=== PATIENT | male | born 1940 | race Caucasian/White ===

== ENCOUNTER 2016-08-19 15:20 | Inpatient (IN) | payer OTHER ==
[~2016-08-19] VITALS: Ht 162.6 cm; Wt 80.7 kg
[~2016-08-19 15:20] MED LIST: DONE5TAB34 PO; GABA-532 PO
[2016-08-19] MEDS ORDERED: TEMA15CA PO (15:48)
[2016-08-19] MEDS ORDERED: DIVA500T7 PO (15:48)
[2016-08-19] MEDS ORDERED: QUET200T PO (15:48)
[2016-08-19] MEDS ORDERED: GABA-534 PO (15:48)
[2016-08-19] MEDS ORDERED: DIVA250T6 PO (15:48)
[2016-08-19] MEDS ORDERED: QUET100T PO (15:48)
[2016-08-19 15:51] LABS: BASOPHILS # (AUTO) 0.1 /CMM (0.0-0.2); BASOPHILS % (AUTO) 0.8 % (0.0-2.0); EOSINOPHILS # (AUTO) 0.7 /CMM (0.0-0.7); EOSINOPHILS % (AUTO) 8.5 % (0.0-6.0); HEMATOCRIT 39 % (39-51); HEMOGLOBIN 13.3 g/dL (13.5-17.5); LYMPHOCYTES # (AUTO) 2.7 /CMM (0.8-4.8); MEAN CORPUSCULAR HEMOGLOBIN 30 PG (26.0-33.0); MEAN CORPUSCULAR HGB CONC 34 g/dl (31.0-36.0); MEAN CORPUSCULAR VOLUME 88 fL (80-96); MONOCYTES # (AUTO) 0.7 /CMM (0.1-1.30); MONOCYTES % (AUTO) 9.2 % (2.0-12.0); NEUTROPHILS # (AUTO) 3.9 /CMM (1.8-8.9); NEUTROPHILS % (AUTO) 48.5 % (43.0-81.0); PLATELET COUNT (AUTO) 236 /CMM (150-450); RDW COEFFICIENT OF VARIATION 13.8 (11.5-15.0); RED BLOOD CELL COUNT(AUTO) 4.37 MIL/uL (4.5-6.0); WHITE BLOOD COUNT (AUTO) 8.1 K/uL (4.3-11.0)
[2016-08-19 15:59] LABS: CALCIUM, SERUM 8.5 mg/dL (8.5-10.1); CARBON DIOXIDE 30 mmol/L (21-32); CHLORIDE 102 mmol/L (98-107); GLUCOSE 101 mg/dL (74-106); POTASSIUM 4.6 mmol/L (3.5-5.1); SODIUM SERUM 139 mmol/L (136-145); UREA NITROGEN, BLOOD 6 mg/dL (7-18)
[2016-08-19 16:07] LABS: ACETAMINOPHEN 0 ug/ml (10-30); ALANINE AMINOTRANSFERASE 17 U/L (12-78); ALBUMIN 3.6 g/dL (3.4-5.0); ALKALINE PHOSPHATASE 107 U/L (46-116); ASPARTATE AMINOTRANSFERASE 23 U/L (15-37); BILIRUBIN,DIRECT 0.1 mg/dL (0.0-0.2); BILIRUBIN,TOTAL 0.3 mg/dL (0.2-1.0); SALICYLATE 0.7 mg/dL (2.8-20.0)
[2016-08-19 16:08] LABS: ALCOHOL, BLOOD < 3 mg/dL (0-0)
[2016-08-19] MEDS ORDERED: OLANZAPINE 10 MG VIAL IM ONE ×4 (16:27→19:05)
[2016-08-19] MEDS ORDERED: WATER FOR INJECTION,STERILE 10 ML ONE ×2 (16:27→19:06)
[2016-08-19] MEDS ORDERED: LORAZEPAM INJ 2 MG/ML VIAL IM ONE (19:00)
[2016-08-19] MEDS ORDERED: LORAZEPAM INJ 2 MG/ML VIAL ONE (19:06)
[2016-08-19] MEDS ORDERED: MAGNESIUM HYDROXIDE 30 ML UDC PO PRN (20:00)
[2016-08-19] MEDS ORDERED: ACETAMINOPHEN 325 MG TABLET PO PRN (20:00)
[2016-08-19] MEDS ORDERED: MAG HYDROX/AL HYDROX/SIMETH 30 ML UDC PO PRN (20:00)
[2016-08-20 06:59] LABS: BASOPHILS # (AUTO) 0.1 /CMM (0.0-0.2); BASOPHILS % (AUTO) 1.1 % (0.0-2.0); EOSINOPHILS # (AUTO) 0.5 /CMM (0.0-0.7); EOSINOPHILS % (AUTO) 5.1 % (0.0-6.0); HEMATOCRIT 41 % (39-51); HEMOGLOBIN 13.8 g/dL (13.5-17.5); LYMPHOCYTES # (AUTO) 3.3 /CMM (0.8-4.8); LYMPHOCYTES % (AUTO) 31.9 % (20.0-44.0); MEAN CORPUSCULAR HEMOGLOBIN 29 PG (26.0-33.0); MEAN CORPUSCULAR HGB CONC 33 g/dl (31.0-36.0); MEAN CORPUSCULAR VOLUME 87 fL (80-96); NEUTROPHILS # (AUTO) 5.4 /CMM (1.8-8.9); NEUTROPHILS % (AUTO) 51.9 % (43.0-81.0); PLATELET COUNT (AUTO) 274 /CMM (150-450); RDW COEFFICIENT OF VARIATION 14.8 (11.5-15.0); RED BLOOD CELL COUNT(AUTO) 4.73 MIL/uL (4.5-6.0); WHITE BLOOD COUNT (AUTO) 10.4 K/uL (4.3-11.0)
[2016-08-20 07:01] LABS: ALANINE AMINOTRANSFERASE 31 U/L (12-78); ALKALINE PHOSPHATASE 113 U/L (46-116); ASPARTATE AMINOTRANSFERASE 31 U/L (15-37); BILIRUBIN,TOTAL 0.5 mg/dL (0.2-1.0); CALCIUM, SERUM 8.7 mg/dL (8.5-10.1); CARBON DIOXIDE 29 mmol/L (21-32); CHLORIDE 104 mmol/L (98-107); GLUCOSE 104 mg/dL (74-106); SODIUM SERUM 141 mmol/L (136-145); TOTAL PROTEIN, SERUM 7.8 g/dL (6.4-8.2); UREA NITROGEN, BLOOD 6 mg/dL (7-18)
[2016-08-20 08:00] VITALS: BP 141/81
[2016-08-20] MEDS: GABAPENTIN 300 MG CAPSULE PO SCH ×3 (09:04→16:55)
[2016-08-20 16:00] VITALS: BP 128/84
[2016-08-20] MEDS ORDERED: DIVALPROEX SODIUM 500 MG TABLET.DR PO SCH (16:30)
[2016-08-20] MEDS: QUETIAPINE FUMARATE 100 MG TABLET PO SCH (16:55)
[2016-08-20] MEDS ORDERED: GABAPENTIN 100 MG CAPSULE PO SCH (17:00)
[2016-08-20] MEDS: DIVALPROEX SODIUM 125 MG CAP.SPRINK PO SCH ×2 (17:01→20:48)
[2016-08-20 20:00] VITALS: BP 112/74
[2016-08-20] MEDS: DONEPEZIL 5 MG TABLET PO SCH (20:48)
[2016-08-21 08:00] VITALS: BP 119/67
[2016-08-21] MEDS: DIVALPROEX SODIUM 125 MG CAP.SPRINK PO SCH ×2 (09:27→21:10)
[2016-08-21] MEDS: QUETIAPINE FUMARATE 100 MG TABLET PO SCH ×2 (09:27→17:46)
[2016-08-21] MEDS: GABAPENTIN 300 MG CAPSULE PO SCH ×3 (09:30→17:46)
[2016-08-21 16:00] VITALS: BP 136/90
[2016-08-21 20:00] VITALS: BP 133/86
[2016-08-21] MEDS: DONEPEZIL 5 MG TABLET PO SCH (21:09)
[2016-08-22 08:00] VITALS: BP 142/95
[2016-08-22] MEDS: DIVALPROEX SODIUM 125 MG CAP.SPRINK PO SCH ×2 (08:14→21:27)
[2016-08-22] MEDS: QUETIAPINE FUMARATE 100 MG TABLET PO SCH ×2 (08:15→16:14)
[2016-08-22] MEDS: GABAPENTIN 300 MG CAPSULE PO SCH ×3 (08:15→16:14)
[2016-08-22] MEDS: LORAZEPAM 0.5 MG TABLET PO PRN (15:49)
[2016-08-22 16:04] VITALS: BP 147/88
[2016-08-22 20:36] VITALS: BP 141/82
[2016-08-22] MEDS: DONEPEZIL 5 MG TABLET PO SCH (21:27)
[2016-08-23 08:00] VITALS: BP 133/83
[2016-08-23] MEDS: GABAPENTIN 300 MG CAPSULE PO SCH ×2 (08:32→12:03)
[2016-08-23] MEDS: QUETIAPINE FUMARATE 100 MG TABLET PO SCH (08:32)
[2016-08-23] MEDS: DIVALPROEX SODIUM 125 MG CAP.SPRINK PO SCH ×2 (08:32→22:03)
[2016-08-23] MEDS: LORAZEPAM 0.5 MG TABLET PO PRN (10:28)
[2016-08-23 14:48] LABS: APPEARANCE,URINE CLEAR (CLEAR); BILIRUBIN,URINE NEGATIVE (NEGATIVE); BLOOD, URINE NEGATIVE Ery/uL (NEGATIVE); COLOR,URINE DARK YELLO (YELLOW); KETONES,URINE 1+ (NEGATIVE); LEUKOCYTE ESTERASE ,URINE NEGATIVE (NEGATIVE); NITRITE, URINE NEGATIVE (NEGATIVE); PH,URINE 7.5 (5.0-8.0); PROTEIN,URINE NEGATIVE (NEGATIVE); UGLUCOSE NEGATIVE (NEGATIVE)
[2016-08-23 15:21] LABS: BACTERIA,URINE None seen /HPF (None Seen); RBC,URINE 0-2 /HPF (0-2); SQUAMOUS EPITHELIAL CELL,UR Few /HPF (None Seen); WBC,URINE 0-2 /HPF (0-3)
[2016-08-23 15:22] LABS: MUCUS,URINE Moderate /LPF (None Seen)
[2016-08-23 16:19] VITALS: BP 133/61
[2016-08-23] MEDS: GABAPENTIN 400 MG CAPSULE PO SCH (16:40)
[2016-08-23] MEDS ORDERED: GABAPENTIN 300 MG CAPSULE PO SCH (17:00)
[2016-08-23] MEDS: OLANZAPINE 5 MG/TAB.RAPDIS PO SCH (17:06)
[2016-08-23 20:35] VITALS: BP 135/82
[2016-08-23] MEDS: DONEPEZIL 5 MG TABLET PO SCH (22:03)
[2016-08-24 08:00] VITALS: BP 151/94
[2016-08-24] MEDS: DIVALPROEX SODIUM 125 MG CAP.SPRINK PO SCH ×2 (08:30→21:47)
[2016-08-24] MEDS: OLANZAPINE 5 MG/TAB.RAPDIS PO SCH ×3 (08:30→17:00)
[2016-08-24] MEDS: GABAPENTIN 400 MG CAPSULE PO SCH ×4 (08:30→22:09)
[2016-08-24 13:32] LABS: BASOPHILS # (AUTO) 0.1 /CMM (0.0-0.2); BASOPHILS % (AUTO) 1.8 % (0.0-2.0); EOSINOPHILS # (AUTO) 0.3 /CMM (0.0-0.7); EOSINOPHILS % (AUTO) 4.4 % (0.0-6.0); HEMATOCRIT 41 % (39-51); HEMOGLOBIN 13.6 g/dL (13.5-17.5); LYMPHOCYTES # (AUTO) 1.7 /CMM (0.8-4.8); LYMPHOCYTES % (AUTO) 25.8 % (20.0-44.0); MEAN CORPUSCULAR HEMOGLOBIN 29 PG (26.0-33.0); MEAN CORPUSCULAR HGB CONC 33 g/dl (31.0-36.0); MEAN CORPUSCULAR VOLUME 87 fL (80-96); MONOCYTES # (AUTO) 0.5 /CMM (0.1-1.30); MONOCYTES % (AUTO) 7.3 % (2.0-12.0); NEUTROPHILS % (AUTO) 60.7 % (43.0-81.0); PLATELET COUNT (AUTO) 275 /CMM (150-450); RDW COEFFICIENT OF VARIATION 15.1 (11.5-15.0); WHITE BLOOD COUNT (AUTO) 6.6 K/uL (4.3-11.0)
[2016-08-24 13:33] LABS: CALCIUM, SERUM 8.9 mg/dL (8.5-10.1); CARBON DIOXIDE 29 mmol/L (21-32); CHLORIDE 107 mmol/L (98-107); CREATININE 0.9 mg/dL (0.6-1.3); GLUCOSE 111 mg/dL (74-106); POTASSIUM 4.4 mmol/L (3.5-5.1); SODIUM SERUM 144 mmol/L (136-145); UREA NITROGEN, BLOOD 18 mg/dL (7-18)
[2016-08-24 16:00] VITALS: BP 133/80
[2016-08-24 19:54] VITALS: BP 128/80
[2016-08-24] MEDS: DONEPEZIL 5 MG TABLET PO SCH (21:48)
[2016-08-25 08:00] VITALS: BP 128/72
[2016-08-25] MEDS: OLANZAPINE 5 MG/TAB.RAPDIS PO SCH ×2 (08:20→16:03)
[2016-08-25] MEDS: DIVALPROEX SODIUM 125 MG CAP.SPRINK PO SCH ×2 (08:24→21:17)
[2016-08-25] MEDS: GABAPENTIN 400 MG CAPSULE PO SCH ×4 (08:25→21:20)
[2016-08-25] MEDS: LORAZEPAM 0.5 MG TABLET PO PRN (12:36)
[2016-08-25 16:00] VITALS: BP 133/69
[2016-08-25 20:23] VITALS: BP 111/69
[2016-08-25] MEDS: DONEPEZIL 5 MG TABLET PO SCH (21:17)
[2016-08-25] MEDS: TEMAZEPAM 7.5 MG CAPSULE PO PRN (21:18)
[2016-08-26 08:02] VITALS: BP 136/80
[2016-08-26] MEDS: OLANZAPINE 5 MG/TAB.RAPDIS PO SCH ×2 (09:01→17:19)
[2016-08-26] MEDS: DIVALPROEX SODIUM 125 MG CAP.SPRINK PO SCH ×2 (09:02→20:57)
[2016-08-26] MEDS: GABAPENTIN 400 MG CAPSULE PO SCH ×4 (09:03→20:57)
[2016-08-26 15:39] VITALS: BP 108/73
[2016-08-26 19:30] VITALS: BP 120/67
[2016-08-26 20:00] VITALS: BP 120/67
[2016-08-26] MEDS: DONEPEZIL 5 MG TABLET PO SCH (20:57)
[2016-08-26] MEDS: TEMAZEPAM 7.5 MG CAPSULE PO PRN (20:57)
[2016-08-27 08:31] VITALS: BP 136/69
[2016-08-27] MEDS: OLANZAPINE 5 MG/TAB.RAPDIS PO SCH ×2 (10:25→16:19)
[2016-08-27] MEDS: DIVALPROEX SODIUM 125 MG CAP.SPRINK PO SCH ×2 (10:26→16:20)
[2016-08-27] MEDS: GABAPENTIN 400 MG CAPSULE PO SCH ×4 (10:30→21:31)
[2016-08-27 15:27] VITALS: BP 123/67
[2016-08-27 20:00] VITALS: BP 139/93
[2016-08-27] MEDS: DONEPEZIL 5 MG TABLET PO SCH (21:31)
[2016-08-27] MEDS: TEMAZEPAM 7.5 MG CAPSULE PO PRN (21:32)
[2016-08-28 08:00] VITALS: BP 133/77
[2016-08-28] MEDS: GABAPENTIN 400 MG CAPSULE PO SCH ×4 (08:03→20:58)
[2016-08-28] MEDS: DIVALPROEX SODIUM 125 MG CAP.SPRINK PO SCH ×3 (08:03→16:37)
[2016-08-28] MEDS: OLANZAPINE 5 MG/TAB.RAPDIS PO SCH ×2 (08:04→16:37)
[2016-08-28 15:56] VITALS: BP 125/83
[2016-08-28 20:00] VITALS: BP 122/79
[2016-08-28] MEDS: LORAZEPAM 0.5 MG TABLET PO PRN (20:59)
[2016-08-28] MEDS: DONEPEZIL 5 MG TABLET PO SCH (21:29)
[2016-08-28 22:00] VITALS: BP 122/79
[2016-08-29 08:07] VITALS: BP 116/65
[2016-08-29] MEDS: OLANZAPINE 5 MG/TAB.RAPDIS PO SCH ×2 (09:11→17:07)
[2016-08-29] MEDS: DIVALPROEX SODIUM 125 MG CAP.SPRINK PO SCH ×3 (09:11→17:06)
[2016-08-29] MEDS: GABAPENTIN 400 MG CAPSULE PO SCH ×4 (09:12→22:00)
[2016-08-29 16:00] VITALS: BP 119/78
[2016-08-29 19:00] VITALS: BP 133/82
[2016-08-29 20:00] VITALS: BP 133/82
[2016-08-29 20:15] VITALS: BP 133/82
[2016-08-29] MEDS: DONEPEZIL 5 MG TABLET PO SCH (22:00)
[2016-08-30 08:00] VITALS: BP 142/81
[2016-08-30] MEDS: DIVALPROEX SODIUM 125 MG CAP.SPRINK PO SCH ×2 (08:06→13:04)
[2016-08-30] MEDS: OLANZAPINE 5 MG/TAB.RAPDIS PO SCH (08:06)
[2016-08-30] MEDS: GABAPENTIN 400 MG CAPSULE PO SCH ×2 (08:32→13:05)
== END 2016-08-30 16:00 | disposition home or self-care (01) | DRG 885 ==
LOC: ER 15:23 → GPS 18:52
PROVIDERS: ADMIT Psychiatry & Neurology Psychiatry; ATTEND Internal Medicine
DX: F29 Unspecified psychosis not due to a substance or known physiological condition (principal); F03.90 Unspecified dementia, unspecified severity, without behavioral disturbance, psychotic disturbance, mood disturbance, and anxiety; F32.9 Major depressive disorder, single episode, unspecified; F41.9 Anxiety disorder, unspecified; Z79.899 Other long term (current) drug therapy; Z73.6 Limitation of activities due to disability
CPT/HCPCS: 36415; 80048-TC; 80053-TC; 80076-TC; 80164-TC; 81000-TC; 85025-TC; 87081-TC; 87086-TC; A4606; G0480; J2060; J3490; Z7610